=== PATIENT | male | born 1965 | race Two or more races ===

== ENCOUNTER 2016-06-15 09:13 | Emergency (ER) | payer OTHER ==
--- NOTE | ~2016-06-15 | MR18 ---
[facility] A Service of [facility] RADIOLOGY TEXT RESULTS PATIENT: VICTORIA WU LOCATION: [place] : 67 UNIT #: [id number] AGE: [address]: Miguel Baptiste DO SEX: M ORDER DR: [id number] [facility] [address] [place], [place] [address] [id number] E MR#: [id number] Acc #: [id number] NAME: VICTORIA WU : 1965 SEX: M STUDY DATE/TIME: 06/15/2016 11:12 UNIT: [facility]IR[facility] ROOM: STUDY DESCRIPTION: MR Brain Wo Contrast Attending Physician: Miguel Baptiste D.O. Ordering Physician: Miguel Baptiste D.O. Primary Care Physician: Primary Care Physician No MRI CENTER REPORT This report is preliminary unless electronic signature is present. STUDY Brain MRI without contrast, date of study is 06/15/2016. PROCEDURE Routine brain MRI without contrast. HISTORY Left side headache and vision loss for about 12 hours. COMPARISON None FINDINGS There is no MR evidence of acute ischemia. There is no hemorrhage, hydrocephalus or extraaxial fluid collection. There are minimal nonspecific white matter changes, but no convincing acute abnormality. Normal flow voids are seen in the cerebral vessels. Bone marrow signal is normal. The extracranial structures are unremarkable. IMPRESSION Minimal chronic nonspecific white matter change, mild volume loss, but no evidence of acute ischemia, hemorrhage or mass, hydrocephalus, extraaxial fluid collection or other acute abnormality. Dictated by... Jarod Khanna M.D. THIS IS AN ELECTRONICALLY VERIFIED REPORT Jarod Khanna M.D. at 06/20/2016 5:13 PM TEV/psc TD: 06/15/2016 22:49 [facility] A Service [facility] RADIOLOGY TEXT RESULTS PATIENT: VICTORIA WU LOCATION: [place] : 67 UNIT #: [id number] AGE: [address]: Miguel Baptiste DO SEX: M ORDER DR: PEREZ #: [id number] MRI CENTER REPORT COPY
[~2016-06-15 09:13] MED LIST: LORTAB 5/500 TA1 TA2 PO; PHENERGAN PO
[2016-06-15 09:17] LABS: BASOPHIL# 0.1 X10e3 (0-0.3); BASOPHIL% 0.6 % (0-2.5); EOSINOPHIL# 0.2 X10e3 (0-0.7); EOSINOPHIL% 2.3 % (0.0-7.0); HEMATOCRIT 41.1 % (38.0-50.0); HEMOGLOBIN 13.9 gm/dL (13.0-16.0); LYMPHOCYTE# 3.1 X10e3 (1.0-3.5); MEAN CELL VOLUME 85.9 FL (83-96); MEAN CORPUSCULAR HGB CONC 33.7 g/dL (30-36); MEAN PLATELET VOLUME 7.8 FL (6.5-11.5); MONOCYTE# 0.7 X10e3 (0-1.0); MONOCYTE% 7.6 % (3.0-12.0); NEUTROPHIL# 5.6 X10e3 (1.5-7.1); NEUTROPHIL% 57.5 % (40-75); PLATELET COUNT 228 X10e3 (140-420); RED BLOOD COUNT 4.79 X10e (3.90-5.60); RED CELL DISTRIBUTION WIDTH 13.1 % (11.0-15.5); WHITE BLOOD COUNT 9.7 X10e3 (4.0-10.5)
[2016-06-15 09:19] LABS: DIFF IND NO
[2016-06-15 09:32] LABS: PARTIAL THROMBOPLASTIN TIME 23.4 SECONDS (23.5-31.3); PROTHROMBIN TIME (PATIENT) 10.1 SECONDS (9.6-11.5)
[2016-06-15 09:52] LABS: ALBUMIN SERUM 3.8 g/dL (3.5-5.0); ALKALINE PHOSPHATASE 52 U/L (32-92); ALT (SGPT) 18 U/L (10-40); AST (SGOT) 19 U/L (10-42); BILIRUBIN,TOTAL 0.8 mg/dL (0.2-2.0); BLOOD UREA NITROGEN 19 mg/dL (9-23); BUN/CREATININE RATIO 23.75; CALCIUM SERUM 8.9 mg/dL (8.4-10.2); CARBON DIOXIDE 26 mmol/L (22-31); CHLORIDE 102 mmol/L (100-111); CREATININE SERUM 0.8 mg/dL (0.6-1.4); GLOM FILT RATE Estimated ABOVE60 mL/min (>60); GLUCOSE FASTING 271 mg/dL (70-110); POTASSIUM 4.1 mmol/L (3.5-5.1); PROTEIN TOTAL SERUM 7.4 g/dL (6.0-8.3); SODIUM 137 mmol/L (135-145)
== END 2016-06-15 14:02 | disposition hospice, home (50) ==
LOC: CED 09:13
PROVIDERS: Emergency Medicine
DX: H54.62 Unqualified visual loss, left eye, normal vision right eye (principal); E11.9 Type 2 diabetes mellitus without complications
CPT/HCPCS: 36415; 70551; 80053; 82947; 85025; 85610; 85730; 96360; 99285